=== PATIENT | female | born 1990 | race Caucasian/White ===

== ENCOUNTER 2018-12-10 15:08 | Outpatient (CLI) | payer MEDICAID ==
[2018-12-10 16:11] LABS: APPEARANCE,URINE CLOUDY; BILIRUBIN,URINE NEGATIVE (NEGATIVE); COLOR,URINE AMBER; GLUCOSE, URINE NEGATIVE (NEGATIVE); KETONES,URINE NEGATIVE (NEGATIVE); LEUKOCYTE ESTERASE,URINE TRACE (NEGATIVE); NITRITE,URINE NEGATIVE (NEGATIVE); PROTEIN,URINE 100 mg/dL (NEGATIVE); URINE SPECIFIC GRAVITY 1.028
[2018-12-10 16:29] LABS: URINE AMPHETAMINES SCREEN NEGATIVE; URINE BARBITURATES SCREEN NEGATIVE; URINE BENZODIAZEPINES SCREEN NEGATIVE; URINE COCAINE SCREEN NEGATIVE; URINE MARIJUANA (THC) SCREEN NEGATIVE; URINE METHADONE SCREEN NEGATIVE; URINE PHENCYCLIDINE SCREEN NEGATIVE
--- NOTE | 2018-12-10 17:15 | Non Stress Test Report ---
Non Stress Test Datetime Report Generated by CPN: 12/10/2018 17:15 DEMOGRAPHIC EGA NST: 37.1 INDICATION Indication for Study: Ordered by Provider URINE RESULTS Urine Protein, NST: Negative MONITORING Monitor Explained: Monitor Explained; Test Explained; Patient Verbalized Understanding Time on Monitor: 12/10/2018 15:31 Time off Monitor: 12/10/2018 16:58 NST Duration: 87 NST INTERVENTIONS NST Interventions: PO Hydration Physician Notified NST: Dr. Luis BABY A: [id number] BABY A Movement : Present Contraction Frequency : irregular FHR Baseline : 140 Accelerations : 15X15 Decelerations : None Variability : Moderate 6-25bpm NST Review: Questionable if Meets Criteria for Reactive NST NST Review and Verified By : LUCILLE Rojas NST Results: Reactive NST REPORT Report Trigger: Send Report
== END 2018-12-10 17:05 | disposition home or self-care (01) ==
LOC: LC 15:08
PROVIDERS: ATTEND Obstetrics & Gynecology Gynecology
PROC: 4A1HXCZ Monitoring of Products of Conception, Cardiac Rate, External Approach (ICD-10-PCS; principal; 2018-12-10)
DX: O47.1 False labor at or after 37 completed weeks of gestation (principal); O99.283 Endocrine, nutritional and metabolic diseases complicating pregnancy, third trimester; E86.0 Dehydration; Z3A.37 37 weeks gestation of pregnancy
CPT/HCPCS: 59025; 80307; 81005

== ENCOUNTER 2018-12-31 15:32 | Inpatient (IN) | payer MEDICAID ==
[2018-12-31 16:19] LABS: APPEARANCE,URINE CLOUDY; BILIRUBIN,URINE NEGATIVE (NEGATIVE); COLOR,URINE YELLOW; GLUCOSE, URINE NEGATIVE (NEGATIVE); KETONES,URINE 20 mg/dL (NEGATIVE); LEUKOCYTE ESTERASE,URINE TRACE (NEGATIVE); NITRITE,URINE NEGATIVE (NEGATIVE); PROTEIN,URINE NEGATIVE (NEGATIVE); URINE SPECIFIC GRAVITY 1.019; UROBILINOGEN,URINE NEGATIVE mg/dL (<2.0)
[2018-12-31 16:37] LABS: URINE AMPHETAMINES SCREEN NEGATIVE; URINE BARBITURATES SCREEN NEGATIVE; URINE BENZODIAZEPINES SCREEN NEGATIVE; URINE COCAINE SCREEN NEGATIVE; URINE MARIJUANA (THC) SCREEN NEGATIVE; URINE METHADONE SCREEN NEGATIVE; URINE PHENCYCLIDINE SCREEN NEGATIVE
[2018-12-31] MEDS ORDERED: ONDANSETRON HCL INJ/PF 4 MG/2 ML SDV IV ONE (17:14)
[2018-12-31] MEDS ORDERED: ONDANSETRON HCL INJ/PF 4 MG/2 ML SDV ONE ×2 (17:16→23:20)
[2018-12-31] MEDS ORDERED: PENICILLIN G-K 5 MILLION UNIT VIAL ONE ×2 (17:47→21:03)
[2018-12-31] MEDS ORDERED: PROMETHAZINE HCL INJ 25 MG/1 ML VIAL ONE (18:00)
--- NOTE | 2018-12-31 18:57 | Admission Physical ---
Datetime Report Generated by CPN: 12/31/2018 18:56 CURRENT ADMISSION Chief Complaint: Uterine Contractions Indication for Induction: Not Applicable Admit Impression : Term, Intrauterine ; Active Labor Admit Plan: Admit to Unit; Initiate Labor Protocol ALLERGIES Medication Allergies: Yes Medication Allergies: hydrocodone/IN/VOMITING (12/31/2018); acetaminophen/IN/VOMITING (12/31/2018) Latex: No Latex Allergies Food Allergies: tomatoes OBSTETRICAL HISTORY EDC: 12/30/2018 00:00 : 3 Para: 0 Gestational Diabetes: No Rh Sensitization: No Incompetent Cervix: No PABLO: No Infertility: No ART Treatment: No Uterine Anomaly: No IUGR: No Hx Previous C/S: No Macrosomia: No Hx Loss/Stillborn: No PIH: No Hx : No Placenta Previa/Abruption: No Depression/PP Depression: No PTL/PROM: No Post Hemorrhage: No Current Procedures: Ultrasound Obstetrical History Comments: G1 2016 G2 2017 G3 current SEE RECORDS Alcohol: No Marijuana : No Cocaine: No Other Illicit Drugs: No Cigarettes: Never Smoker. [id number] MEDICAL HISTORY Diabetes: No Blood Transfusion: No Pulmonary Disease (Asthma, TB): No Breast Disease: No Hypertension: No Chief Revenue Officer Surgery: No Heart Disease: No Hosp/Surgery: No Autoimmune Disorder: No Anesthetic Complications: No Kidney Disease: No Abnormal Pap Smear: No Neuro/Epilepsy: No Psychiatric Disorders: No Other Medical Diseases: No Hepatitis/Liver Disease: No Significant Family History: No Varicosities/Phlebitis: No Trauma/Violence : No Thyroid Dysfunction: No Medical History Comments: partial colon resection INFECTIOUS HISTORY Gonorrhea: No Genital Herpes: No Chlamydia: No Tuberculosis: No Syphilis: No Hepatitis: No HIV/AIDS Exposure: No Rash or Viral Illness: No HPV: No PHYSICAL EXAM General: Normal HEENT: Normal Neurologic: Normal Thyroid: Normal Heart: Normal Lungs: Normal Breast: Normal Back: Normal Abdomen: Normal Genitourinary Exam: Normal Extremities: Normal DTRs: Normal Pelvic Type: Adequate Vital Signs: Reviewed; Within Normal Limits VAGINAL EXAM Dilatation: 1 Effacement: 75 Station: -3 MEMBRANES Membranes: Intact FETUS A EGA: 40.1 Monitoring: External US FHR- Baseline: 120s Variability: Moderate 6-25bpm Accelerations: 15X15 Decelerations: None FHR Category: Category I Admit Comment: Pt progressed to 2/100/-3; GBS Positive PLANS FOR LABOR AND DELIVERY Labor and Delivery: None Pain Management: Medications; Epidural Feeding Preference: Breast Benefit of Breast Feed Discussed: Yes Circumcision: Yes INFORMED CONSENT Signature: with User ID: [email or web address]
[2018-12-31 18:59] LABS: ABSOLUTE BASOPHILS # (AUTO) 0.1 10^3/uL (0.0-0.2); ABSOLUTE LYMPHOCYTES (AUTO) 1.5 10^3/uL (0.5-4.7); ABSOLUTE MONOCYTES (AUTO) 0.4 10^3/uL (0.1-1.4); BASOPHILS % (AUTO) 0.7 % (0-2); EOSINOPHILS % (AUTO) 0.3 % (0-6); HEMATOCRIT 37.2 % (36.0-47.0); HEMOGLOBIN 12.6 g/dL (12.0-15.5); LYMPHOCYTES % (AUTO) 13.4 % (13-45); MEAN CORPUSCULAR HEMOGLOBIN 29.4 pg (27.0-33.4); MEAN CORPUSCULAR VOLUME 86 fl (80-97); MONOCYTES % (AUTO) 3.5 % (3-13); PLATELET COUNT 205 10^3/uL (150-450); RED CELL DISTRIBUTION WIDTH 13.2 % (11.5-14.0); SEGMENTED NEUTROPHILS % (AUTO) 82.1 % (42-78); TOTAL CELLS COUNTED % (AUTO) 100 %
[2018-12-31] MEDS ORDERED: PENICILLIN G POTASSIUM 5,000,000 UNIT in DEXTROSE 5%-WATER 100 ML IV ONE (19:00)
[2018-12-31] MEDS ORDERED: MISOPROSTOL 0.2 MG TABLET ONE (21:03)
[2018-12-31] MEDS ORDERED: LIDOCAINE 1% INJ-PF (10 MG/ML) 30 ML SDV ONE (21:03)
[2018-12-31] MEDS: PENICILLIN G POTASSIUM 2,500,000 UNIT in DEXTROSE 5%-WATER 50 ML IV SCH (22:20)
[2018-12-31] MEDS ORDERED: NALBUPHINE HCL INJ 10 MG/1 ML AMPULE ONE (23:20)
[2018-12-31] MEDS ORDERED: NALBUPHINE HCL INJ 10 MG/1 ML AMPULE INJ ONE (23:23)
[2019-01-01] MEDS ORDERED: PENICILLIN G-K 5 MILLION UNIT VIAL ONE ×2 (02:07→06:17)
[2019-01-01] MEDS: PENICILLIN G POTASSIUM 2,500,000 UNIT in DEXTROSE 5%-WATER 50 ML IV SCH ×2 (02:24→06:23)
[2019-01-01] MEDS ORDERED: FENTANYL CITRATE INJ/PF 100 MCG/2 ML AMPUL ONE (03:00)
[2019-01-01] MEDS ORDERED: EPHEDRINE SULFATE INJ 50 MG/1 ML AMPULE ONE (03:00)
[2019-01-01] MEDS ORDERED: OXYTOCIN/NORMAL SALINE 20 UNIT/1,000 ML RTUINJ ONE (03:01)
[2019-01-01] MEDS ORDERED: BUPIVACAINE HCL 0.25 % INJ/PF (2.5 MG/1 ML) 30 ML VIAL ONE (03:01)
[2019-01-01] MEDS ORDERED: FENTANYL/BUPIVACAINE/NS/PF 300 MCG/150 ML RTUINJ EPI ONE (03:01)
[2019-01-01] MEDS ORDERED: LIDOCAINE 1.5%/EPINEPHRINE INJ 5 ML AMP ONE (03:11)
--- NOTE | 2019-01-01 04:39 | L&D Progress Notes ---
PROGRESS NOTES Datetime Report Generated by CPN: 01/01/2019 04:38 PROGRESS NOTE Impression: Normal Progression of Labor Procedures- Other: epidural Plan: Continue Present Management Vital Signs : Reviewed; Within Normal Limits Comment: Pt now comfortable--s/p epidural VAGINAL EXAM Dilatation: 1 Effacement: 75 Station: -3 LAST VAGINAL EXAM-NURSING Dilitation: 7.5 Dilitation: 4.5 Dilitation: 3.5 Dilitation: 2.0 Dilitation: 1.0 Dilitation: cl Effacement: 90 Effacement: 80 Effacement: 90 Effacement: 75 Effacement: th Station: -2 Station: -2 Station: high Station: -3 Station: -3 Station: -2 Contractions: periods of irritability in between UC Contractions: periods of irritability in between UC MEMBRANES Membranes: Intact FETUS A FHR - Baseline: 120s Monitoring: External US Variability: Moderate 6-25bpm Accelerations: 15X15 Decelerations: None FHR Category: Category I : 40.2 : 40.1 SIGNATURE SIGNATURE: [id number];[id number];[id number] SIGNATURE: [id number];[id number] SIGNATURE: [id number] Signature: with User ID: [email or web address]
[2019-01-01] MEDS ORDERED: DINOPROSTONE 10 MG VAGINAL INSERT.SR PV PRN (04:41)
[2019-01-01] MEDS ORDERED: OXYTOCIN/NORMAL SALINE 20 UNIT/1,000 ML RTUINJ IV PRN ×2 (04:41→11:29)
[2019-01-01] MEDS: RINGERS SOLUTION,LACTATED 1,000 ML IV PRN ×2 (04:58→04:59)
[2019-01-01] MEDS ORDERED: RINGERS SOLUTION,LACTATED 300 ML IV ONE (05:00)
--- NOTE | 2019-01-01 11:27 | Delivery Summary ---
Del Sum A-C Datetime Report Generated by CPN: 01/01/2019 11:27 DELIVERY PERSONNEL DELIVERY PERSONNEL: [id number] Delivery Doctor:: Vaishnavi Alfaro CNM Labor and Delivery Nurse:: Carolann Cook RNcivil draftsman Nurse:: Martina Hernandez RN Nursery Nurse:: Rosaura Stoll RN Chief Learning Officer/SUPERVISOR COMPUTER OPERATIONS: Catherine Guillory, ST MATERNAL INFORMATION Delivery Anesthesia: Epidural Medications After Delivery: Pitocin Bolus-Please Comment; Pitocin Drip 20 Units/1000ml NSS Maternal Complications: None Provider Comments: male, with compound Lt hand. OA to RICCI. vigorous, to mothers abd. Mouth suctioned per Nursery nurse. Cord clamped x2 cut per FOB. 3VC, placenta via bess, intact. 2*perineal lac repaired in ususal fashion. Bleeding minimal. Mother and stable. LABOR SUMMARY EDC: 12/30/2018 00:00 No. Babies in Womb: 1 Attempted: No Labor Anesthesia: Epidural LABOR INFORMATION Reason for Induction: Not Applicable Onset of Labor: 01/01/2019 23:08 Complete Dilatation: 01/01/2019 07:54 Oxytocin: Augmentation Group B Beta Strep: Positive Antibiotics # of Doses: 4 Antibiotics Time of Last Dose: 629 Name of Antibiotic Given: PCN Steroids Given: None Reason Steroids Not Administered: Not Applicable MEMBRANES Membranes Rupture Method: Spontaneous Rupture of Membranes: 01/01/2019 08:37 Length of Rupture (hr): 0.48 Amniotic Fluid Color: Clear Amniotic Fluid Amount: Small STAGES OF LABOR Stage 1 hr: -15 Stage 1 min: -14 Stage 2 hr: 1 Stage 2 min: 12 Stage 3 hr: 0 Stage 3 min: 4 Total Time in Labor hr: -13 Total Time in Labor min: -58 VAGINAL DELIVERY Episiotomy: None Laceration #1: Perineal (Annotations: Data stored by N on behalf of user) Laceration Extension #1: Second Degree Laceration Repair: Yes (Annotations: Data stored by N on behalf of user) Laceration Repair Note: 2.0 chromic Sponge Count Correct: N/A Sharps Count Correct: N/A BABY A INFORMATION Infant Delivery Date/Time: 01/01/2019 09:06 Method of Delivery: Vaginal Born in Route : No : N/A Forceps: N/A Vacuum Extraction: N/A Shoulder Dystocia : No PRESENTATION/POSITION BABY A Presentation: Cephalic Cephalic Presentation: N/A Vertex Position: Right Occipital Anterior with lt compound hand Breech Presentation: N/A PLACENTA INFORMATION BABY A Placenta Delivery Time : 01/01/2019 09:10 Placenta Method of Delivery: Spontaneous Placenta Status: Delivered SCORES BABY A Heart Rate 1 min: >100 bpm Resp Effort 1 min: Good Cry Reflex Irritability 1 min: Cough or Sneeze or Pulls Away Muscle Tone 1 min: Active Motion Color 1 min: Blue/Pale Resuscitation Effort 1 min: Tactile Stimulation SCORE 1 MIN: 8 Heart Rate 5 min: >100 bpm Resp Effort 5 min: Good Cry Reflex Irritability 5 min: Cough or Sneeze or Pulls Away Muscle Tone 5 min: Active Motion Color 5 min: Body [place], Extremities Blue Resuscitation Effort 5 min: Tactile Stimulation SCORE 5 MIN: 9 INFORMATION BABY A Gestational Age at Delivery: 40.2 Gestational Status: Full Term- 39- 40.6 Weeks Outcome : Liveborn Infant Condition : Stable Sex: Male IDENTIFICATION BABY A Verification Date/Time: 01/01/2019 09:28 ID Band Number: [id number] Mother's Name Verified: Yes RN Verifying Infant: C ANTONIO, RN/ BL ROULUND, RN WEIGHT/LENGTH BABY A Infant Birthweight (gm): 3523 Infant Weight (lb): 7 Weight (oz): 12 Infant Length (in): 19.50 Length (cm): 49.53 CORD INFORMATION BABY A No. Cord Vessels: 3 Nuchal Cord : N/A Cord Blood Taken: Yes-For Eval (Mom's Blood Type - or O+) Infant Suction: None ASSESSMENT BABY A Infant Complications: Decreased Variability; Multiple Variable Decels Physical Findings at Delivery: Molding of the Head Infant Respirations: Appears Normal Skin to Skin: Yes Workers Compensation Claims Specialist/ALS Called : No Care By: Emiliano Stoll RN Transferred To: Remains with Mother BABY B INFORMATION : N/A SIGNATURES Assignment: Raf Stern MD Signature: with User ID: [email or web address] : with User ID: [email or web address] : I was personally available for consultation and serving as supervising physician for the MLP.
[2019-01-01] MEDS ORDERED: DIBUCAINE 1% OINTMENT 56 GM TP PRN (11:29)
[2019-01-01] MEDS ORDERED: BENZOCAINE/MENTHOL AEROSOL SPRAY 56 ML TOP PRN (11:29)
[2019-01-01] MEDS ORDERED: ZOLPIDEM TARTRATE 5 MG TABLET PO PRN (11:29)
[2019-01-01] MEDS ORDERED: MEASLES,MUMPS&RUBELLA VACC/PF 0.5 ML VIAL SUBCUT PRN (11:29)
[2019-01-01] MEDS ORDERED: DIPH/PERTUSS(ACELL)/TETANUS VAC/PF 0.5 ML SYR (>=10YO) IM PRN (11:29)
[2019-01-01] MEDS: IBUPROFEN 800 MG TABLET PO SCH ×2 (14:22→21:37)
[2019-01-01] MEDS: DOCUSATE SODIUM 100 MG CAPSULE PO SCH (18:12)
[2019-01-01] MEDS: FERROUS SULFATE 325 MG TABLET PO SCH (18:12)
[2019-01-02] MEDS: IBUPROFEN 800 MG TABLET PO SCH ×3 (05:52→21:46)
[2019-01-02 08:07] LABS: ABSOLUTE EOSINOPHILS # (AUTO) 0.2 10^3/uL (0.0-0.6); ABSOLUTE LYMPHOCYTES (AUTO) 3.1 10^3/uL (0.5-4.7); ABSOLUTE MONOCYTES (AUTO) 0.7 10^3/uL (0.1-1.4); ABSOLUTE NEUT (AUTO) 9.4 10^3/uL (1.7-8.2); BASOPHILS % (AUTO) 0.3 % (0-2); EOSINOPHILS % (AUTO) 1.1 % (0-6); HEMATOCRIT 33.1 % (36.0-47.0); HEMOGLOBIN 11.3 g/dL (12.0-15.5); LYMPHOCYTES % (AUTO) 23.1 % (13-45); MEAN CORPUSCULAR HEMOGLOBIN 29.8 pg (27.0-33.4); MEAN CORPUSCULAR VOLUME 88 fl (80-97); MONOCYTES % (AUTO) 5.6 % (3-13); PLATELET COUNT 142 10^3/uL (150-450); RED BLOOD COUNT 3.78 10^6/uL (3.72-5.28); RED CELL DISTRIBUTION WIDTH 13.5 % (11.5-14.0); SEGMENTED NEUTROPHILS % (AUTO) 69.9 % (42-78); TOTAL CELLS COUNTED % (AUTO) 100 %; WHITE BLOOD COUNT 13.4 10^3/uL (4.0-10.5)
[2019-01-02] MEDS: PRENATAL VITAMIN W DHA CAPSULE PO SCH (09:31)
[2019-01-02] MEDS: SENNOSIDES/DOCUSATE 8.6-50 MG 1 EACH TABLET PO SCH (09:31)
[2019-01-02] MEDS: DOCUSATE SODIUM 100 MG CAPSULE PO SCH ×2 (09:31→17:53)
[2019-01-02] MEDS: FERROUS SULFATE 325 MG TABLET PO SCH ×2 (09:31→17:53)
--- NOTE | 2019-01-02 13:53 | PDOC PROGRESS REPORT ---
Subjective-OB Progress Note for:: 01/02/19 Subjective: reports bleeding slowing, pain controlled with current meds. denies needs. Physical Exam (OB) Vital Signs: Temp Pulse Resp BP Pulse Ox 98.0 F 57 L 18 127/68 H 98 01/02/19 08:12 01/02/19 08:12 01/02/19 08:12 01/02/19 08:12 01/02/19 08:12 Intake & Output 01/01/19 01/02/19 01/03/19 06:59 06:59 06:59 Intake Total 102 50 Balance 102 50 Weight 106.9 kg - Abdomen Description: Soft, Round Hernia Present: No Fundal Description: Firm, Midline Fundal Height: u/u - u/2 - Abdominal Distension: No distension Tenderness: Nontender - Extremities Lower extremities: Lashonda's sign - neg Calf: Normal, Nontender Objective-Diagnostic Laboratory: 01/02/19 05:59 01/02/19 01/02/19 05:59 05:59 WBC 13.4 H RBC 3.78 Hgb 11.3 L Hct 33.1 L MCV 88 MCH 29.8 MCHC 34.0 RDW 13.5 Plt Count 142 L Seg Neutrophils % 69.9 Lymphocytes % 23.1 Monocytes % 5.6 Eosinophils % 1.1 Basophils % 0.3 Absolute Neutrophils 9.4 H Absolute Lymphocytes 3.1 Absolute Monocytes 0.7 Absolute Eosinophils 0.2 Absolute Basophils 0.0 Blood Type A NEGATIVE Assessment and Plan(PN) - Assessment and Plan (1) Second degree perineal laceration during delivery Is this a current diagnosis for this admission?: Yes (2) Vaginal delivery Is this a current diagnosis for this admission?: Yes - Time Spent with Patient Time with patient: Less than 15 minutes Medications reviewed and adjusted accordingly: Yes - Disposition Anticipated Discharge: Home Within: within 24 hours
[2019-01-03] MEDS: IBUPROFEN 800 MG TABLET PO SCH (06:28)
[2019-01-03] MEDS: FERROUS SULFATE 325 MG TABLET PO SCH (11:20)
[2019-01-03] MEDS: SENNOSIDES/DOCUSATE 8.6-50 MG 1 EACH TABLET PO SCH (11:21)
[2019-01-03] MEDS: PRENATAL VITAMIN W DHA CAPSULE PO SCH (11:21)
[2019-01-03] MEDS: DOCUSATE SODIUM 100 MG CAPSULE PO SCH (11:21)
--- NOTE | 2019-01-03 11:35 | PDOC DISCHARGE SUMMARY ---
Final Diagnosis Discharge Date: 01/03/19 - Final Diagnosis (1) Second degree perineal laceration during delivery Is this a current diagnosis for this admission?: Yes (2) Vaginal delivery Is this a current diagnosis for this admission?: Yes Discharge Data - Discharge Medication Prescriptions: Ibuprofen [Motrin 800 mg Tablet] 800 mg PO Q8HP PRN #30 tablet PRN Reason: Abdominal Cramping Home Medications: Prenat 115/Iron Fum/Folic/Dss [ 19 Tablet] 1 tab PO DAILY 12/10/18 Ibuprofen [Motrin 800 mg Tablet] 800 mg PO Q8HP PRN #30 tablet 01/03/19 Reason(s) for Admission: Onset of Labor Procedures: NST, Ultrasound Intrapartum Procedure(s): Spontaneous Vaginal Delivery Complication(s): Laceration-Perineal Laceration-Degree: 2nd - Diagnosis Test Laboratory: Temp Pulse Resp BP Pulse Ox 97.9 F 55 L 16 136/83 H 98 01/03/19 07:46 01/03/19 07:46 01/03/19 07:46 01/03/19 07:46 01/03/19 07:46 12/31/18 12/31/18 12/31/18 15:40 17:30 18:45 RBC 4.30 Hgb 12.6 Hct 37.2 Urine Opiates Screen NEGATIVE Cancelled 01/02/19 05:59 RBC 3.78 Hgb 11.3 L Hct 33.1 L Urine Opiates Screen - Discharge information/Instructions Discharge Activity: Activity As Tolerated, Balance Activity w/Rest, No Lifting Over 10 Pounds, Pelvic Rest, No tub bath, Walk Frequently Discharge Diet: As Tolerated, Regular Disposition: HOME, SELF-CARE Follow up with: [facility] in: 4, Weeks
[2019-01-03 12:43] VITALS: BP 124/54
== END 2019-01-03 14:25 | disposition home or self-care (01) | DRG 807 ==
LOC: LC 15:32 → LR 18:13 → 2S 01-01 11:45
PROVIDERS: ADMIT Obstetrics & Gynecology; ATTEND Obstetrics & Gynecology
PROC: 10E0XZZ Delivery of Products of Conception, External Approach (ICD-10-PCS; principal; 2019-01-01)
PROC: 0KQM0ZZ Repair Perineum Muscle, Open Approach (ICD-10-PCS; 2019-01-01)
PROC: 3E0234Z Introduction of Serum, Toxoid and Vaccine into Muscle, Percutaneous Approach (ICD-10-PCS; 2019-01-02)
DX: O99.824 Streptococcus B carrier state complicating childbirth (principal); Z37.0 Single live birth; O26.893 Other specified pregnancy related conditions, third trimester; O70.1 Second degree perineal laceration during delivery; O32.6XX0 Maternal care for compound presentation, not applicable or unspecified; O76 Abnormality in fetal heart rate and rhythm complicating labor and delivery; Z3A.40 40 weeks gestation of pregnancy
CPT/HCPCS: 36415; 80307; 81005; 85025; 85461; 86592; 86850; 86900; 86901; J2300; J2405; J2540; J2550; J2590; J2790; J3010; J3490; J7060

== ENCOUNTER 2020-10-21 10:39 | Inpatient (IN) | payer MEDICAID ==
[2020-10-21] MEDS ORDERED: RINGERS SOLUTION,LACTATED 1,000 ML IV ONE (10:44)
[2020-10-21] MEDS ORDERED: OXYTOCIN/0.9 % SODIUM CHLORIDE 30 UNIT/500 ML RTUINJ IV PRN ×2 (10:44→22:05)
--- NOTE | 2020-10-21 11:09 | Admission Physical ---
Datetime Report Generated by CPN: 10/21/2020 11:08 CURRENT ADMISSION Hx Assessment: The History has been Reviewed and is Current Chief Complaint: Decreased Movement Chief Complaint Other: at 40.4 wks with decreased movement, oligohydraminos and non-reactive NST in office. Sent to hospital for IOL as she is term. During US at office, CY was 4 total. No movement was noted during this US exam . Indication for Induction: Oligohydramnios Admit Impression : Term, Intrauterine ; Intact Membranes; Induction of Labor Admit Plan: Admit to Unit; Initiate Labor Induction Protocol ALLERGIES Medication Allergies: hydrocodone/[place]/VOMITING (12/31/2018); acetaminophen/IL/VOMITING (12/31/2018) OBSTETRICAL HISTORY EDC: 10/17/2020 00:00 : 4 Para: 1 Term: 1 : 0 SAB: 2 IAB: 0 Ectopic: 0 Livin Cesareans: 0 VBACs: 0 Multiple Births: 0 PHYSICAL EXAM General: Normal HEENT: Normal Neurologic: Normal Thyroid: Normal Heart: Normal Lungs: Normal Breast: Normal Back: Normal Abdomen: Normal Genitourinary Exam: Normal Extremities: Normal DTRs: Normal Pelvic Type: Adequate Vital Signs: Reviewed; Within Normal Limits VAGINAL EXAM Dilatation: 3 Effacement: 50 Station: -2 MEMBRANES Membranes: Intact FETUS A EGA: 40.4 Monitoring: External US FHR- Baseline: 135 Variability: Moderate 6-25bpm Accelerations: Absent Decelerations: None FHR Category: Category II Presentation: Vertex Admit Comment: at 40.4 wks EGA with decreased FM, non-reactive NST at office and oligohydraminos at term -Admit to LDR for IOL -NPO and IVFs: LR at 125 cc/hr after 1 liter bolus of LR -CEFM and toco -Admission labs pending -GBS negative -Hx one prior , anticipate INFORMED CONSENT Informed Consent Obtained: Vaginal Delivery; Section Delivery; Vacuum/Forceps Assist; Risks, Benefits and Alternatives Discussed Signature: with User ID: Bryan : with User ID: Bryan
[2020-10-21 11:27] LABS: ABSOLUTE BASOPHILS # (AUTO) 0.1 10^3/uL (0.0-0.2); ABSOLUTE EOSINOPHILS # (AUTO) 0.1 10^3/uL (0.0-0.6); ABSOLUTE LYMPHOCYTES (AUTO) 2.1 10^3/uL (0.5-4.7); ABSOLUTE MONOCYTES (AUTO) 0.5 10^3/uL (0.1-1.4); ABSOLUTE NEUT (AUTO) 6.4 10^3/uL (1.7-8.2); BASOPHILS % (AUTO) 0.9 % (0-2); EOSINOPHILS % (AUTO) 1.2 % (0-6); HEMATOCRIT 40.7 % (36.0-47.0); HEMOGLOBIN 13.8 g/dL (12.0-15.5); LYMPHOCYTES % (AUTO) 23.1 % (13-45); MEAN CORPUSCULAR HEMOGLOBIN 28.2 pg (27.0-33.4); MEAN CORPUSCULAR HGB CONC 33.9 g/dL (32.0-36.0); MEAN CORPUSCULAR VOLUME 83 fl (80-97); MONOCYTES % (AUTO) 5.3 % (3-13); PLATELET COUNT 255 10^3/uL (150-450); RED BLOOD COUNT 4.89 10^6/uL (3.72-5.28); RED CELL DISTRIBUTION WIDTH 14.3 % (11.5-14.0); SEGMENTED NEUTROPHILS % (AUTO) 69.5 % (42-78); TOTAL CELLS COUNTED % (AUTO) 100 %; WHITE BLOOD COUNT 9.2 10^3/uL (4.0-10.5)
[2020-10-21 12:16] LABS: APPEARANCE,URINE CLEAR; BILIRUBIN,URINE NEGATIVE (NEGATIVE); COLOR,URINE YELLOW; GLUCOSE, URINE NEGATIVE (NEGATIVE); KETONES,URINE NEGATIVE (NEGATIVE); LEUKOCYTE ESTERASE,URINE TRACE (NEGATIVE); NITRITE,URINE NEGATIVE (NEGATIVE); PROTEIN,URINE NEGATIVE (NEGATIVE); URINE SPECIFIC GRAVITY 1.009; UROBILINOGEN,URINE NEGATIVE mg/dL (<2.0)
[2020-10-21] MEDS ORDERED: OXYTOCIN 10 UNIT/ML VIAL ONE (12:23)
[2020-10-21] MEDS ORDERED: MISOPROSTOL 0.2 MG TABLET ONE (12:23)
[2020-10-21] MEDS ORDERED: LIDOCAINE 1% INJ-PF (10 MG/ML) 30 ML SDV ONE (12:23)
[2020-10-21] MEDS ORDERED: OXYTOCIN/0.9 % SODIUM CHLORIDE 30 UNIT/500 ML RTUINJ ONE (12:23)
[2020-10-21] MEDS: RINGERS SOLUTION,LACTATED 1,000 ML IV PRN ×2 (12:30→20:41)
--- NOTE | 2020-10-21 14:21 | L&D Progress Notes ---
PROGRESS NOTES Datetime Report Generated by CPN: 10/21/2020 14:21 PROGRESS NOTE Informed Consent Obtained: Vaginal Delivery; Section Delivery; Vacuum/Forceps Assist; Risks, Benefits and Alternatives Discussed Comment: Cat 1 strip, uc's q 2-4, up in rocking chair, Pitocin infusing VAGINAL EXAM Dilatation: 3 Effacement: 50 Station: -2 MEMBRANES Membranes: Intact FETUS A : 40.4 Presentation: Vertex SIGNATURE SIGNATURE: [id number];[id number] Assignment: Addis Balderas MD Signature: with User ID: [email or web address] : with User ID: [email or web address]
--- NOTE | 2020-10-21 16:09 | L&D Progress Notes ---
PROGRESS NOTES Datetime Report Generated by CPN: 10/21/2020 16:09 PROGRESS NOTE Informed Consent Obtained: Vaginal Delivery; Section Delivery; Vacuum/Forceps Assist; Risks, Benefits and Alternatives Discussed Comment: starting to feel uc's, q 2-3 min, cat 1, still thinking about epidural, POC discussed VAGINAL EXAM Dilatation: 3 Effacement: 50 Station: -2 MEMBRANES Membranes: Intact FETUS A : 40.4 Presentation: Vertex SIGNATURE SIGNATURE: [id number];[id number] Assignment: Addis Balderas MD Signature: with User ID: [email or web address] : with User ID: [email or web address]
[2020-10-21] MEDS ORDERED: EPHEDRINE SULFATE INJ 50 MG/1 ML AMPULE ONE (18:23)
[2020-10-21] MEDS ORDERED: FENTANYL/BUPIVACAINE/NS/PF 300 MCG/150 ML RTUINJ EPI ONE (18:24)
[2020-10-21] MEDS ORDERED: ROPIVACAINE HCL 0.2% INJ/PF (2 MG/ML) 20 ML SDV ONE (18:24)
[2020-10-21] MEDS ORDERED: ZOLPIDEM TARTRATE 5 MG TABLET PO PRN (22:05)
[2020-10-21] MEDS ORDERED: DIBUCAINE 1% OINTMENT 28 GM TP PRN (22:05)
[2020-10-21] MEDS ORDERED: MAGNESIUM HYDROXIDE SUSP 30 ML UDCUP PO PRN (22:05)
[2020-10-21] MEDS ORDERED: DIPHENHYDRAMINE HCL 25 MG CAPSULE PO PRN (22:05)
[2020-10-21] MEDS ORDERED: MEASLES,MUMPS&RUBELLA VACC/PF 0.5 ML VIAL SUBCUT PRN (22:05)
[2020-10-21] MEDS ORDERED: ACETAMINOPHEN 325 MG TABLET PO PRN (22:05)
[2020-10-21] MEDS ORDERED: ACETAMINOPHEN WITH CODEINE #3 TABLET PO PRN ×2 (22:05)
[2020-10-21] MEDS ORDERED: ACETAMINOPHEN 650 MG SUPP.RECT PR PRN (22:05)
[2020-10-21] MEDS ORDERED: MAG HYDROX/AL HYDROX/SIMETH SUSP 30 ML UDCUP PO PRN (22:05)
[2020-10-21] MEDS ORDERED: VARICELLA VACC/PF (1350 UNIT/0.5 ML) 0.5 ML VIAL SUBCUT PRN (22:05)
[2020-10-21] MEDS ORDERED: BENZOCAINE/MENTHOL AEROSOL SPRAY 56 ML TOP PRN (22:05)
[2020-10-21] MEDS ORDERED: DIPH/PERTUSS(ACELL)/TETANUS VAC/PF 0.5 ML SYR (>=10YO) IM PRN (22:05)
[2020-10-21] MEDS ORDERED: PSEUDOEPHEDRINE HCL 30 MG TABLET PO PRN (22:05)
[2020-10-21] MEDS ORDERED: FAMOTIDINE 20 MG TABLET PO PRN (22:05)
[2020-10-21] MEDS ORDERED: GLYCERIN/WITCH HAZEL LEAF 1 EACH MED..WIPE TP PRN (22:05)
--- NOTE | 2020-10-21 23:31 | Birth Certificate Data ---
Cert Data Datetime Report Generated by CPN: 10/21/2020 23:31 CERTIFICATE DATA Delivery Provider: Addis Balderas MD (10/21/2020 10:51:ERROL Yeager) 47a. Care: Yes (10/21/2020 10:51:Jil Ramires RN) 47b. Date of First Visit: 04/22/2020 00:00 (10/21/2020 10:51:Jil Ramires RN) 47c. Date of Last Visit: 10/21/2020 00:00 (10/21/2020 10:51:Jil Ramires RN) 47d. Number of Visits: 9 (10/21/2020 10:51:Jil Ramires RN) 48a. Number of Prev Live Births: 1 (10/21/2020 10:51:Jil Ramires RN) 48b. Now Livin (10/21/2020 10:51:Jil Ramires RN) 48c. Live Births Now : 0 (10/21/2020 10:51:QS system process) 48e. Losses: 2 (10/21/2020 10:51:Jil Ramires RN) RISK FACTORS IN THIS 49a. Diabetes: No (10/21/2020 10:51:Jil Ramires RN) 49b. Hypertension: No (10/21/2020 10:51:Jil Ramires RN) 49c. Previous Births: 0 (10/21/2020 10:51:Jil Ramires RN) 49d. Stillborns: No (10/21/2020 10:51:Jil Ramires RN) 49d. IUGR: No (10/21/2020 10:51:Jil Ramires RN) 49e. Infertility Treatment: No (10/21/2020 10:51:Jil Ramires RN) 49f. Previous Cesareans: 0 (10/21/2020 10:51:Jil Ramires RN) Mother's Height 50b. Height Inches: 67 (10/21/2020 11:42:QS system process) Mother's Weight 51a. Pre- Weight (lbs): 235 (10/21/2020 10:51:Jil Ramires RN) 51b. Weight at Delivery (lbs): 242 (10/21/2020 11:42:QS system process) 52. Dt Last Normal Menses Began: 01/11/2020 00:00 (10/21/2020 10:51:Jil Ramires RN) Infections Present/Treated 53a. Gonorrhea: No (10/21/2020 10:51:Jil Ramires RN) Results this Hospital Visit : Negative (10/21/2020 10:51:Jil Ramires RN) 53b. Syphilis: No (10/21/2020 10:51:Jil Ramires RN) 53c. Chlamydia: No (10/21/2020 10:51:Jil Ramires RN) Results this Hospital Visit: Negative (10/21/2020 10:51:Jil Ramires RN) 53d. Hepatitis B: No (10/21/2020 10:51:Jil Ramires RN) Results this Hospital Visit: Negative (10/21/2020 10:51:Jil Ramires RN) 53e. Hepatitis C: Negative (10/21/2020 10:51:Jil Ramires RN) 53h. Mother Tested for HBsAG: Yes (10/21/2020 10:51:Jil Ramires RN) 53i. Date Tested: 04/22/2020 00:00 (10/21/2020 10:51:Jil Ramires RN) 53j. Test Result: Negative (10/21/2020 10:51:Jil Ramires RN) Obstetric Procedures 54a, b, c. Obstetric Procedures: Ultrasound (10/21/2020 10:51:Jil Ramires RN) Cigarette Smoking Cigarette Smoking: Never Smoker. [id number] (10/21/2020 10:51:Jil Ramires RN) Onset of Labor 56a. PROM >12 Hrs: 0.22 (10/21/2020 10:51:QS system process) 56b. Precipitous Labor <3 Hrs: 2 (10/21/2020 10:51:QS system process) 56c. Prolonged Labor > 20 Hrs: 2 (10/21/2020 10:51:QS system process) 57a. Induction of Labor: Induction (10/21/2020 10:51:Pia Rivera RN) 57c. Non-Vertex Presentation A: Vertex (10/21/2020 10:51:ERROL Yeager) 57d. Steroids - Lung Mat: None (10/21/2020 10:51:ERROL Yeager) 57d. Steroids - Lung Mat: Not Applicable (10/21/2020 10:51:ERROL Yeager) 57f. Mat [place] or Temp >100.4: 98.5 (10/21/2020 10:51:ERROL Yeager) 57g. Moderate/Heavy Meconium: Clear (10/21/2020 10:51:ERROL Yeager) 57h. Intolerance of Labor: N/A (10/21/2020 10:51:ERROL Yeager) 57i. Epidural/Spinal Anesthesia: Epidural (10/21/2020 10:51:ERROL Yeager) Method of Delivery 58a. Forceps - Unsuccessful A: N/A (10/21/2020 10:51:ERROL Yeager) 58b. Vacuum - Unsuccessful A: N/A (10/21/2020 10:51:Lisa Atkinson RNC) 58c. Presentation at 58c. Presentation at - A : Vertex (10/21/2020 10:51:ERROL Yeager) 58c. Presentation at - A : N/A (10/21/2020 10:51:ERROL Yeager) 58c. Presentation at - A : Cephalic (10/21/2020 19:31:Pia Rivera, RN) Final Route and Method of Del 58d. Baby A Route/Delivery: Vaginal (10/21/2020 21:38:Lisa Bellavance, RNC) 58e. Trial of Labor Attempted: No (10/21/2020 10:51:Lisa Bellavance, RNC) 58e. Trial of Labor Attempted A: N/A (10/21/2020 10:51:Lisa Bellavance, RNC) 58e. Trial of Labor Attempted B: N/A (10/21/2020 10:51:Lisa Bellavance, RNC) Maternal Morbidity 59b. 3rd or 4th Degree Lacs: Perineal (10/21/2020 10:51:Lisa Bellavance, RNC) Birthweight Baby A: 3600 (10/21/2020 10:51:Pia Rivera ) 60a. Pounds : 7 (10/21/2020 10:51:QS system process) 60b. Ounces: 15 (10/21/2020 10:51:QS system process) 61. GA at Delivery Baby A: 40.4 (10/21/2020 10:51:Lisa Atkinson [facility]) : Full Term- 39- 40.6 Weeks (10/21/2020 10:51:QS system process) 62a. 5 Minute Baby A: 9 (10/21/2020 10:51:QS system process)
--- NOTE | 2020-10-21 23:31 | Delivery Summary ---
Del Sum A-C Datetime Report Generated by CPN: 10/21/2020 23:31 DELIVERY PERSONNEL DELIVERY PERSONNEL: [id number] Delivery Doctor:: Addis Balderas MD Labor and Delivery Nurse:: Pia Rivera RNcd reactor operator head Nurse:: ERROL Yeager Stock Preparation Supervisor/PAPER MILL MANAGER: Lisa Ross, ST MATERNAL INFORMATION Delivery Anesthesia: Epidural Medications After Delivery: Pitocin 30 Units in 500ml NS/D5W Estimated Blood Loss (ml): 150 Maternal Complications: None Provider Comments: Called to patients room as she was complete and +2 with urge to push. Delivered after a few contractions a viable male . After delivery of the head, the shoulders and rest of the body followed. vigorous and cord clamping was delayed for 30 seconds. Infant then placed on Maternal chest. Both mother and infant stable. LABOR SUMMARY EDC: 10/17/2020 00:00 No. Babies in Womb: 1 Attempted: No Labor Anesthesia: Epidural LABOR INFORMATION Reason for Induction: Not Applicable Onset of Labor: 10/21/2020 19:31 Complete Dilatation: 10/21/2020 21:33 Oxytocin: Induction Group B Beta Strep: negative Antibiotics # of Doses: 0 Steroids Given: None Reason Steroids Not Administered: Not Applicable MEMBRANES Membranes Rupture Method: Artificial Rupture of Membranes: 10/21/2020 21:25 Length of Rupture (hr): 0.22 Amniotic Fluid Color: Clear Amniotic Fluid Amount: Moderate Amniotic Fluid Odor: None STAGES OF LABOR Stage 1 hr: 2 Stage 1 min: 2 Stage 2 hr: 0 Stage 2 min: 5 Stage 3 hr: 0 Stage 3 min: 3 Total Time in Labor hr: 2 Total Time in Labor min: 10 VAGINAL DELIVERY Episiotomy: None Laceration #1: Perineal Laceration Extension #1: Second Degree Laceration Repair: Yes Sponge Count Correct: Yes Sharps Count Correct: Yes CSECTION DELIVERY Primary Indication: N/A CSection Incision: N/A BABY A INFORMATION Infant Delivery Date/Time: 10/21/2020 21:38 Method of Delivery: Vaginal Nurse Controlled Delivery: No Born in Route : No : N/A Forceps: N/A Vacuum Extraction: N/A Shoulder Dystocia : No PRESENTATION/POSITION BABY A Presentation: Cephalic Cephalic Presentation: Vertex Vertex Position: Left Occipital Anterior Breech Presentation: N/A PLACENTA INFORMATION BABY A Placenta Delivery Time : 10/21/2020 21:41 Placenta Method of Delivery: Spontaneous Placenta Status: Delivered SCORES BABY A Heart Rate 1 min: >100 bpm Resp Effort 1 min: Good Cry Reflex Irritability 1 min: Cough or Sneeze or Pulls Away Muscle Tone 1 min: Active Motion Color 1 min: Body [place], Extremities Blue Resuscitation Effort 1 min: Tactile Stimulation SCORE 1 MIN: 9 Heart Rate 5 min: >100 bpm Resp Effort 5 min: Good Cry Reflex Irritability 5 min: Cough or Sneeze or Pulls Away Muscle Tone 5 min: Active Motion Color 5 min: Body [place], Extremities Blue Resuscitation Effort 5 min: Tactile Stimulation SCORE 5 MIN: 9 INFORMATION BABY A Gestational Age at Delivery: 40.4 Gestational Status: Full Term- 39- 40.6 Weeks Outcome : Liveborn Infant Condition : Stable Infant Sex: Male IDENTIFICATION BABY A Infant Verification Date/Time: 10/21/2020 22:04 ID Band Number: [id number] Mother's Name Verified: Yes RN Verifying : K Lazaro RN Additional Verifying Personnel: D Demetrio RN WEIGHT/LENGTH BABY A Birthweight (gm): 3600 Infant Weight (lb): 7 Weight (oz): 15 Length (in): 20.50 Length (cm): 52.07 CORD INFORMATION BABY A No. Cord Vessels: 3 Nuchal Cord : N/A Cord Blood Taken: Yes-For Eval (Mom's Blood Type - or O+) Suction: None ASSESSMENT BABY A Complications: None Physical Findings at Delivery: Within Normal Limits Infant Respirations: Appears Normal Skin to Skin: Yes Skin to Skin Time (min): 120 Coffee Break Attendant/ALS Called : No Care By: R Adolforosaline RN Transferred To: Remains with Mother BABY B INFORMATION : N/A SIGNATURES Signature: with User ID: Bryan : with User ID: Bryan
[2020-10-22] MEDS: IBUPROFEN 800 MG TABLET PO SCH ×4 (01:03→21:23)
[2020-10-22] MEDS: DOCUSATE SODIUM 100 MG CAPSULE PO SCH ×2 (09:10→17:39)
[2020-10-22] MEDS: PRENATAL VITAMIN W DHA CAPSULE PO SCH (09:10)
[2020-10-22] MEDS: FERROUS SULFATE 325 MG TABLET PO SCH ×2 (09:10→17:39)
[2020-10-22] MEDS: SENNOSIDES/DOCUSATE 8.6-50 MG 1 EACH TABLET PO SCH (09:10)
[2020-10-22 09:15] LABS: HEMATOCRIT 33.4 % (36.0-47.0); MEAN CORPUSCULAR HEMOGLOBIN 28.2 pg (27.0-33.4); MEAN CORPUSCULAR HGB CONC 34.3 g/dL (32.0-36.0); MEAN CORPUSCULAR VOLUME 82 fl (80-97); PLATELET COUNT 194 10^3/uL (150-450); RED BLOOD COUNT 4.06 10^6/uL (3.72-5.28); WHITE BLOOD COUNT 12.3 10^3/uL (4.0-10.5)
[2020-10-22 09:17] LABS: HEMOGLOBIN 11.4 g/dL (12.0-15.5)
--- NOTE | 2020-10-22 10:01 | PDOC PROGRESS REPORT ---
Subjective-OB Progress Note for:: 10/22/20 Subjective: Pt doing well, no concerns. She reports light bleeding, reg diet and voiding w/o difficulty. Physical Exam (OB) Vital Signs: Temp Pulse Resp BP Pulse Ox 98.6 F 57 L 24 H 144/62 H 100 10/22/20 08:00 10/22/20 08:00 10/22/20 08:00 10/22/20 08:00 10/22/20 08:00 Intake & Output 10/21/20 10/22/20 10/23/20 06:59 06:59 06:59 Intake Total 1415 Output Total 900 Balance 515 Weight 110 kg - PIH/Pre-Eclampsia DTR's: 2 + Clonus: Negative Headache: Absent Epigastric Pain: No Visual Changes: No - Maternal Morbidity 59. Maternal Morbidity (serious complications experinced by the mother associat ed with labor and delivery: None of the above - Lochia Lochia Amount: Scant < 10 ml Lochia Color: Rubra/Red - Abdomen Description: Soft Hernia Present: No Fundal Description: Firm, Midline Fundal Height: u/u - u/2 Objective-Diagnostic Laboratory: 10/22/20 08:02 10/21/20 10/21/20 10/21/20 10:50 11:04 11:04 WBC 9.2 RBC 4.89 Hgb 13.8 Hct 40.7 MCV 83 MCH 28.2 MCHC 33.9 RDW 14.3 H Plt Count 255 Seg Neutrophils % 69.5 Urine Color YELLOW Urine Appearance CLEAR Urine pH 7.0 Ur Specific [place] 1.009 Urine Protein NEGATIVE Urine Glucose (UA) NEGATIVE Urine Ketones NEGATIVE Urine Blood NEGATIVE Urine Nitrite NEGATIVE Ur Leukocyte Esterase TRACE H Blood Type A NEGATIVE Antibody Screen POSITIVE 10/22/20 10/22/20 08:02 08:02 WBC 12.3 H RBC 4.06 Hgb 11.4 L D Hct 33.4 L MCV 82 MCH 28.2 MCHC 34.3 RDW 14.0 Plt Count 194 Seg Neutrophils % Urine Color Urine Appearance Urine pH Ur Specific [place] Urine Protein Urine Glucose (UA) Urine Ketones Urine Blood Urine Nitrite Ur Leukocyte Esterase Blood Type A NEGATIVE Antibody Screen Assessment and Plan(PN) - Assessment and Plan (1) Oligohydramnios delivered Is this a current diagnosis for this admission?: Yes (2) Second degree perineal laceration during delivery Is this a current diagnosis for this admission?: Yes (3) Vaginal delivery Is this a current diagnosis for this admission?: Yes - Time Spent with Patient Time with patient: Less than 15 minutes Medications reviewed and adjusted accordingly: Yes - Disposition Anticipated Discharge Disposition: Home, Self Care Anticipated Discharge Timeframe: within 24 hours
[2020-10-23] MEDS: IBUPROFEN 800 MG TABLET PO SCH (05:38)
[2020-10-23 08:11] VITALS: BP 121/62
--- NOTE | 2020-10-23 09:59 | PDOC DISCHARGE SUMMARY ---
Impression - Admit/DC Date/PCP Admission Date/Primary Care Provider: 10/21/20 10:39 KENNETH OLIVEROS MD Discharge Date: 10/23/20 - Discharge Diagnosis (1) Oligohydramnios delivered Is this a current diagnosis for this admission?: Yes (2) Second degree perineal laceration during delivery Is this a current diagnosis for this admission?: Yes (3) Vaginal delivery Is this a current diagnosis for this admission?: Yes - Additional Information Resuscitation Status: Full Code Discharge Diet: Regular Discharge Activity: Balance Activity w/Rest, Pelvic Rest Referrals: KENNETH OLIVEROS MD [Primary Care Provider] - Prescriptions: Ibuprofen [Motrin 800 mg Tablet] 800 mg PO Q8HP PRN #60 tablet PRN Reason: Home Medications: Prenat 115/Iron Fum/Folic/Dss [ 19 Tablet] 1 tab PO DAILY 12/10/18 Ibuprofen [Motrin 800 mg Tablet] 800 mg PO Q8HP PRN #60 tablet 10/23/20 HPI Gestational Age: 40.4 Reason(s) for Admission: Induction of Labor, Obstetric Complications Admission Note: Oligo noted at [facility] during routine Office visit, sent to L&D Procedures: NST Intrapartum Procedure(s): Spontaneous Vaginal Delivery Complication(s): Laceration-Perineal Laceration-Degree: 2nd Hospital Course 59. Maternal Morbidity (serious complications experinced by the mother associated with labor and delivery: None of the above Results Laboratory Results: WBC 12.3 10^3/uL (4.0-10.5) H 10/22/20 08:02 RBC 4.06 10^6/uL (3.72-5.28) 10/22/20 08:02 Hgb 11.4 g/dL (12.0-15.5) L D 10/22/20 08:02 Hct 33.4 % (36.0-47.0) L 10/22/20 08:02 MCV 82 fl (80-97) 10/22/20 08:02 MCH 28.2 pg (27.0-33.4) 10/22/20 08:02 MCHC 34.3 g/dL (32.0-36.0) 10/22/20 08:02 RDW 14.0 % (11.5-14.0) 10/22/20 08:02 Plt Count 194 10^3/uL (150-450) 10/22/20 08:02 Lymph % (Auto) 23.1 % (13-45) 10/21/20 11:04 [place] % (Auto) 5.3 % (3-13) 10/21/20 11:04 Eos % (Auto) 1.2 % (0-6) 10/21/20 11:04 Baso % (Auto) 0.9 % (0-2) 10/21/20 11:04 Absolute Neuts (auto) 6.4 10^3/uL (1.7-8.2) 10/21/20 11:04 Absolute Lymphs (auto) 2.1 10^3/uL (0.5-4.7) 10/21/20 11:04 Absolute Monos (auto) 0.5 10^3/uL (0.1-1.4) 10/21/20 11:04 Absolute Eos (auto) 0.1 10^3/uL (0.0-0.6) 10/21/20 11:04 Absolute Basos (auto) 0.1 10^3/uL (0.0-0.2) 10/21/20 11:04 Seg Neutrophils % 69.5 % (42-78) 10/21/20 11:04 Urine Color YELLOW 10/21/20 10:50 Urine Appearance CLEAR 10/21/20 10:50 Urine pH 7.0 (5.0-9.0) 10/21/20 10:50 Ur Specific [place] 1.009 10/21/20 10:50 Urine Protein NEGATIVE mg/dL (NEGATIVE) 10/21/20 10:50 Urine Glucose (UA) NEGATIVE mg/dL (NEGATIVE) 10/21/20 10:50 Urine Ketones NEGATIVE mg/dL (NEGATIVE) 10/21/20 10:50 Urine Blood NEGATIVE (NEGATIVE) 10/21/20 10:50 Urine Nitrite NEGATIVE (NEGATIVE) 10/21/20 10:50 Urine Bilirubin NEGATIVE (NEGATIVE) 10/21/20 10:50 Urine Urobilinogen NEGATIVE mg/dL (<2.0) 10/21/20 10:50 Ur Leukocyte Esterase TRACE (NEGATIVE) H 10/21/20 10:50 Urine Ascorbic Acid NEGATIVE (NEGATIVE) 10/21/20 10:50 RPR NONREACTIVE (NONREACTIVE) 10/21/20 11:04 Blood Type A NEGATIVE 10/22/20 08:02 Antibody Screen POSITIVE 10/21/20 11:04 Antibody Identification RHOGAM INDUCED ANTI-D 10/21/20 11:04 Screen NEGATIVE 10/22/20 08:02 Plan Plan of Treatment: f/u at [facility] 4 wks Time Spent: Less than 30 Minutes
[2020-10-23] MEDS: SENNOSIDES/DOCUSATE 8.6-50 MG 1 EACH TABLET PO SCH (10:07)
[2020-10-23] MEDS: PRENATAL VITAMIN W DHA CAPSULE PO SCH (10:07)
[2020-10-23] MEDS: FERROUS SULFATE 325 MG TABLET PO SCH (10:07)
[2020-10-23] MEDS: DOCUSATE SODIUM 100 MG CAPSULE PO SCH (10:07)
== END 2020-10-23 12:46 | disposition home or self-care (01) | DRG 807 ==
LOC: LR 10:39 → 2S 10-22 00:01
PROVIDERS: ADMIT Obstetrics & Gynecology; ATTEND Obstetrics & Gynecology
PROC: 10E0XZZ Delivery of Products of Conception, External Approach (ICD-10-PCS; principal; 2020-10-21)
PROC: 0KQM0ZZ Repair Perineum Muscle, Open Approach (ICD-10-PCS; 2020-10-21)
DX: O41.03X0 Oligohydramnios, third trimester, not applicable or unspecified (principal); Z37.0 Single live birth; O70.1 Second degree perineal laceration during delivery; O36.8130 Decreased fetal movements, third trimester, not applicable or unspecified; Z3A.40 40 weeks gestation of pregnancy; Z88.6 Allergy status to analgesic agent; Z28.21 Immunization not carried out because of patient refusal
CPT/HCPCS: 1967; 36415; 81005; 85025; 85027; 85461; 86592; 86850; 86870; 86900; 86901; 94760; J2590; J2790; J2795; J3010; J3490